=== PATIENT | male | born 1970 | race Caucasian/White ===

== ENCOUNTER 2024-09-27 01:09 | Emergency (ER) | payer OTHER, SELFPAY ==
[2024-09-27 01:13] VITALS: BP 225/136
[2024-09-27 02:20] LABS: % Basophils 0.9 % (0-2); % Eosinophils 4.4 % (0-6); % Immature Granulocytes 0.3 % (0-0.5); % Lymphocytes 22.2 % (20.5-51.1); % Monocytes 7.2 % (1.7-9.3); Absolute Basophils 0.1 10^3/uL (0-0.2); Absolute Eosinophils 0.5 10^3/uL (0-0.7); Absolute Lymphocytes 2.3 10^3/uL (1.2-3.4); Absolute Monocytes 0.7 10^3/uL (0.1-0.6); Absolute Neutrophils 6.6 10^3/uL (1.4-6.5); Hemoglobin 16.7 g/dL (13.0-18.0); Mean Corp Hgb Conc. 35.5 g/dL (33.0-37.0); Mean Corpuscular Hgb 32.1 pg (27.0-31.0); Mean Corpuscular Volume 90.2 fL (80.0-94.0); Nucleated Red Blood Cells % 0 % (-); Platelet Count 212 10^3/uL (130-400); Red Blood Cell Count 5.21 10^6/uL (4.70-6.10); Red Cell Dist. Width 11.9 % (11.5-14.5); White Blood Cell Count 10.2 10^3/uL (4.8-10.8)
[2024-09-27 02:38] LABS: Urine Albumin 1+ (Neg - Trace); Urine Bilirubin Negative (Negative); Urine Character Clear (Clear); Urine Color Yellow; Urine Glucose Negative (Negative); Urine Ketone Negative (Negative); Urine Leukocyte Negative (Negative); Urine Nitrite Negative (Negative); Urine Occult Blood 4+ (Negative); Urine Specific Gravity 1.015 (<1.030); Urine Urobilinogen Negative (Neg - 1+)
[2024-09-27 02:39] LABS: ALT (SGPT) 46 U/L (0-50); AST (SGOT) 32 U/L (17-59); Albumin 5.2 g/dl (3.5-5.0); Alkaline Phosphatase 82 U/L (38-126); Blood Urea Nitrogen 22 mg/dl (9-20); Carbon Dioxide 26 mmol/L (22-30); Chloride 104 mmol/L (98-107); Glucose 133 mg/dl (70-99); Potassium 4.4 mmol/L (3.5-5.1); Sodium 142 mmol/L (135-145); Total Bilirubin 0.7 mg/dl (0.2-1.3); Total Protein 7.9 g/dl (6.3-8.2); eGFR > 60.00
[2024-09-27 03:04] LABS: Urine Amorphous Seen; Urine Red Blood Cell >100 /HPF (0-2)
[2024-09-27 03:05] LABS: Urine Bacteria Moderate (Negative); Urine Granular Cast 0-2 /LPF (0); Urine White Cell 0-2 /HPF (0-5)
[2024-09-27 03:06] LABS: Urine Mucus Moderate
[2024-09-27 06:40] VITALS: BP 152/80
--- NOTE | 2024-09-27 07:02 | ED.GENMED ---
History of Present Illness
General
Chief Complaint: Flank Pain
Source: patient
Exam Limitations: none
Time Seen by Provider: 09/27/24 06:04
Nursing documentation reviewed up to this point in time: agreed with
History of Present Illness
History of Present Illness:
Patient presents to ED secondary to intermittent left flank pain radiating to his left groin over the past 2 days. Patient has taken Vicodin and Motrin prior to arrival, with mild improvement symptoms. Denies nausea or vomiting. Denies difficulty
with urination. Denies fever or chills. Patient states that he has had similar symptoms in the past, secondary to kidney stones, which he has been able to pass spontaneously.
Past History
Past History
ED Past Medical History: Asthma
Social History
Tobacco: Non-smoker
Alcohol: Occasional
Living: with family
Employment: Employed
Family History
Family History: Other (Noncontributory)
Review of Systems
Review of Systems
Allergies reviewed?: Yes
All Other Systems: ROS reviewed and negative except as documented in HPI and ROS
Constitutional: Reports no symptoms
EENT: Reports no symptoms
ABD/GI: Reports no symptoms
: Reports flank pain
Musculoskeletal: Reports no symptoms
Skin: Reports no symptoms
Neurological: Reports no symptoms
Phy Exam
Physical Exam
Physical Exam:
Physical Exam
General: no apparent distress, not acutely ill. afebrile.
Head: nc/at. eomi
Neck: supple. normal range of motion.
Abdomen: normal bowel sounds. not tender.
Neuro: alert and oriented x 3. no focal neurological deficits
Skin: no rash
Psychiatric: well kept. interactive and cooperative
Extremities: no edema. no calf tenderness.
Course
Orders/Labs/Results
Orders:
Orders
09/27/24 01:26
Complete Blood Count/With Diff Urgent
Comprehensive Metabolic Panel Urgent
02/02/25 02:34
Urinalysis Urgent
Date Specimen was Collected: 09/27/24
Time Specimen was Collected: 01:17
Urine Microscopic Urgent
Date Specimen was Collected: 09/27/24
Time Specimen was Collected: 01:17
09/27/24 06:09
CT Abd/pel Without Iv Or Oral Urgent
Comment:
Reason For Exam: left flank pain
09/27/24 06:56
Ketorolac [Toradol] 30 mg IM NOW STA
Oxycodone/Acetaminophen [Percocet 5/325] 1 tablet PO NOW STA
09/27/24 07:32
Oxycodone/Acetaminophen [Percocet 5/325] 1 tablet .ROUTE .STK-MED ONE
Abnormal Lab Results
09/27/24 09/27/24
01: 02:34
MCH 32.1 H pg
(27.0-31.0)
Absolute Neuts (auto) 6.6 H 10^3/uL
(1.4-6.5)
Absolute Monos (auto) 0.7 H 10^3/uL
(0.1-0.6)
BUN 22 H mg/dl
(9-20)
Glucose 133 H mg/dl
(70-99)
Albumin 5.2 H g/dl
(3.5-5.0)
Urine Occult Blood 4+ A
(Negative)
Urine RBC >100 A /HPF
(0-2)
Urine Bacteria Moderate A
(Negative)
Urine Albumin 1+ A
(Neg - Trace)
09/27/24 01:26
09/27/24 01:26
Vital Signs
Initial and Last Documented VS:
Initial Vital Signs
Temp Pulse Resp BP Pulse Ox
98.1 F 88 22 225/136 98
09/27/24 01:13 09/27/24 01:13 09/27/24 01:13 09/27/24 01:13 09/27/24 01:13
Last Documented Vital Signs
Temp Pulse Resp BP Pulse Ox
98.1 F 75 18 158/94 96
09/27/24 01:13 09/27/24 08:50 09/27/24 08:50 09/27/24 08:50 09/27/24 08:50
MDM/Problems Addressed
MDM/Problems Addressed:
History, exam, and CT scan consistent with renal colic secondary to obstructing renal stone. Blood work within normal limits UA inconsistent with acute infection. Pain adequately controlled. Patient will be started on Flomax along with pain
medication, as well as urine strainer to be used at home. Urology referral provided at time of discharge. Return precautions provided, i.e. fever/inability to urinate/worsening pain
*Critical Care Note
Total Time (30-74mins, 75-104mins- exclusive of procedures): Not Applicable
ED Attending Note
-
Portions of this chart may have been created with voice recognition software.� Occasional wrong word or��sound alike� substitutions may have occurred due to the inherent limitations of voice recognition software.
Discharge Plan
Departure
Patient Disposition: Home (Routine Discharge)
Date of Disposition: 09/27/24
Time of Disposition: 08:28
Patient with high blood pressure during this ER visit?: Yes
Condition: Good
Discharge Problem:
Renal colic
Instructions: Renal Colic (DC)
Prescriptions:
New
hydrocodone-acetaminophen 5-300 mg tablet
1 tab PO Q8H PRN (Reason: Pain) Qty: 14 0RF
tamsulosin [Flomax] 0.4 mg capsule
0.4 mg PO DAILY Qty: 7 0RF
ondansetron 4 mg Tablet,Disintegrating
4 mg PO TIDPRN PRN (Reason: nausea/vomiting) Qty: 12 0RF
No Action
albuterol sulfate [Albuterol Sulfate HFA] 18 GM HFA aerosol inhaler
18 gm inhalation Q6HPRN PRN (Reason: asthma symptoms)
oxycodone-acetaminophen 5 MG/325 MG tablet
1 - 2 tab PO .TWICEWEEKLY PRN (Reason: pain)
Patient Comments:
pt states 'I still take this for back pain'
tamsulosin 0.4 MG capsule
0.4 mg PO DAILY Qty: 14 0RF
hydrocodone-acetaminophen [Vicodin] 1 EACH tablet
1 ea PO Q4HPRN PRN (Reason: pain) Qty: 15 0RF
Referrals:
Jewel Merchant MD [Active] -
Ronnell Sosa MD [Family Provider] -
Activity Restrictions/Additional Instructions:
As discussed, please follow-up with referred urologist for further evaluation and treatment. Please consider return to ED with worsening symptoms, i.e. fever/worsening pain/inability to urinate. Your prescriptions have been sent electronically to
[facility] pharmacy in [place].
Interventions
Interventions:
*Risk Screen - Suicide Last Done: 09/27/24 01:13
*General Assessment Last Done: 09/27/24 06:42
*Neglect/Abuse Screening Last Done: 09/27/24 01:13
*ED COVID-19 Vaccine History Last Done: 09/27/24 06:42
*Nursing Disposition Last Done: 09/27/24 08:50
JC-Filczh-Avdkhhltjh Assessment Last Done: 09/27/24 06:39
ED-Male Genitourinary Assessment Last Done: 09/27/24 06:39
Discharge Date and Time
Discharge Date/Time: 09/27/24 08:52
Print Language: [place]
[2024-09-27] MEDS: PERCOCET 5/325 1 TABLET PO (07:23)
[2024-09-27] MEDS: TORADOL 30 MG IM (07:24)
[2024-09-27 08:39] VITALS: BP 158/94
[2024-09-27 08:50] VITALS: BP 158/94
== END 2024-09-27 08:52 | disposition home or self-care (01) ==
LOC: EMR 01:09
PROVIDERS: Emergency Medicine; EMERGENCY PHYSICIAN Emergency Medicine; FAMILY PHYSICIAN Family Medicine
DX: N13.2 Hydronephrosis with renal and ureteral calculous obstruction (principal); J45.909 Unspecified asthma, uncomplicated
CPT/HCPCS: 96372; 99284; 74176; 80053; 81003; 81015; 85025

== ENCOUNTER → 2024-10-20 09:38 | Outpatient (REF) | payer OTHER, SELFPAY | LOC: RAD 09:38 | PROVIDERS: ATTENDING PHYSICIAN Specialist; FAMILY PHYSICIAN Internal Medicine | DX: N20.0 Calculus of kidney (principal) | CPT/HCPCS: 74018 ==

== ENCOUNTER 2024-12-02 06:22 | Day surgery (SDC) | payer OTHER, SELFPAY ==
[2024-11-23 14:07] VITALS: BMI 32.0
[2024-12-02] VITALS (8 sets, daily range): BP systolic 156–194; BP diastolic 88–108; BMI 32.0
[2024-12-02] MEDS: Pyridium 200 MG PO (16:23)
== END 2024-12-02 16:55 | disposition home or self-care (01) ==
LOC: SDS 06:22
PROVIDERS: ATTENDING PHYSICIAN Specialist; FAMILY PHYSICIAN Internal Medicine
DX: N20.0 Calculus of kidney (principal)
CPT/HCPCS: 52356; 36415; 74018; 76000; 93005; C1894; C2617

== ENCOUNTER 2024-12-15 19:16 | Emergency (ER) | payer OTHER, SELFPAY ==
[2024-12-15 19:21] VITALS: BP 220/123
[2024-12-15 19:44] VITALS: BP 192/113
[2024-12-15 19:45] VITALS: BMI 32.0
[2024-12-15 19:59] LABS: % Basophils 1.3 % (0-2); % Eosinophils 8.6 % (0-6); % Immature Granulocytes 0.3 % (0-0.5); % Lymphocytes 30.8 % (20.5-51.1); % Monocytes 5.9 % (1.7-9.3); % Neutrophils 53.1 % (42.2-75.2); Absolute Basophils 0.1 10^3/uL (0-0.2); Absolute Eosinophils 0.6 10^3/uL (0-0.7); Absolute Lymphocytes 2.1 10^3/uL (1.2-3.4); Absolute Monocytes 0.4 10^3/uL (0.1-0.6); Absolute Neutrophils 3.6 10^3/uL (1.4-6.5); Hematocrit 40.6 % (39.0-52.0); Hemoglobin 14.4 g/dL (13.0-18.0); Mean Corp Hgb Conc. 35.5 g/dL (33.0-37.0); Mean Corpuscular Hgb 32.4 pg (27.0-31.0); Mean Corpuscular Volume 91.4 fL (80.0-94.0); Mean Platelet Volume 9.7 fL (7.4-10.4); Nucleated Red Blood Cells % 0 % (-); Platelet Count 200 10^3/uL (130-400); Red Blood Cell Count 4.44 10^6/uL (4.70-6.10); Red Cell Dist. Width 11.9 % (11.5-14.5); White Blood Cell Count 6.8 10^3/uL (4.8-10.8)
[2024-12-15 20:00] VITALS: BP 189/96
[2024-12-15 20:16] LABS: ALT (SGPT) 25 U/L (0-50); AST (SGOT) 21 U/L (17-59); Albumin 4.2 g/dl (3.5-5.0); Alkaline Phosphatase 63 U/L (38-126); Blood Urea Nitrogen 14 mg/dl (9-20); Calcium 8.9 mg/dl (8.4-10.2); Carbon Dioxide 26 mmol/L (22-30); Chloride 106 mmol/L (98-107); Estimated Creatinine Clearance > 125 ml/min; Glucose 160 mg/dl (70-99); Sodium 140 mmol/L (135-145); Total Bilirubin 0.5 mg/dl (0.2-1.3); Total Protein 6.5 g/dl (6.3-8.2); eGFR > 60.00
--- NOTE | 2024-12-15 20:25 | ED.GENMED ---
History of Present Illness
General
Chief Complaint: Blood Pressure Problem
Source: patient
Time Seen by Provider: 12/15/24 20:08
History of Present Illness
History of Present Illness:
54-year-old male presents to the emergency room complaining of elevated blood pressure, left flank pain. Patient is approximate 13 days postop from having a left ureteral stone lasered and a stent placement. Patient followed up postoperatively
with his primary care doctor and dry wall finisher and both noted he had moderate elevated blood pressure in the 160s. Previously the patient has not had any elevation in blood pressures. He began having some sensation of feeling unwell and headaches
over the past couple days. He measured his blood pressure today and it was noted to be in the 180s systolic. This prompted him to come to the emergency room for evaluation. Patient has not been taking any medication for blood pressure. He is
complaining of left flank pain since his procedure. He continues to have left flank pain for which he has been taking hydrocodone intermittently as well as Tylenol and ibuprofen. He is taking 200 mg of ibuprofen every 4-6 hours. He has also been
taking tamsulosin. He denies any fever. Patient indicated he had a brief episode of left upper chest discomfort while walking into the emergency room but is not having chest discomfort now. He did not have chest discomfort anytime previous to
this. He has not had any shortness of breath.
Past History
Past History
ED Past Medical History: Asthma
Social History
Tobacco: Non-smoker
Alcohol: Occasional
Living: with family
Employment: Employed
Family History
Family History: Other (Noncontributory)
Phy Exam
Physical Exam
Physical Exam:
General: Awake, Alert, Oriented X3. No acute distress.
Vitals: Hypertensive
Head: Atraumatic
Eyes: Pupils equal, EOMI
Throat: Airway intact, no exudates
Neck: Trachea midline
Lungs: Clear and equal b/l
Heart: Regular rate, no murmurs
Abd: Soft, mild left lower abdominal pain to palpation, No pulsatile mass
Back: Mild left CVA tenderness to
Neuro: Nonfocal
Skin: Warm, dry, no rash
Extremities: pulses equal b/l, no edema
Course
Orders/Labs/Results
Orders:
Orders
12/15/24 19:17
EKG [Electrocardiogram (*1)] Urgent
Reason for Study: Chest Pain
EKG- Treatment ONCE
12/15/24 19:48
Complete Blood Count/With Diff Urgent
Comprehensive Metabolic Panel Urgent
Troponin I Urgent
12/15/24 20:21
Ketorolac [Toradol] 15 mg IV NOW STA
12/15/24 20:32
CT Chest Angio W/wo Iv Contras Urgent
Comment:
Reason For Exam: hypertension, chest pain
12/15/24 20:34
Electrocardiogram (*1) Urgent
Reason for Study: Abnormal EKG
EKG- Treatment ONCE
12/15/24 22:06
Troponin I Urgent
12/15/24 22:55
Lisinopril [Zestril] 10 mg PO NOW STA
Abnormal Lab Results
12/15/24
19:48
RBC 4.44 L 10^6/uL
(4.70-6.10)
MCH 32.4 H pg
(27.0-31.0)
Eosinophils % 8.6 H %
(0-6)
Glucose 160 H mg/dl
(70-99)
12/15/24 19:48
12/15/24 19:48
Vital Signs
Initial and Last Documented VS:
Initial Vital Signs
Temp Pulse Resp BP Pulse Ox
98.7 F 79 19 220/123 97
12/15/24 19:21 12/15/24 19:21 12/15/24 19:21 12/15/24 19:21 12/15/24 19:21
Last Documented Vital Signs
Temp Pulse Resp BP Pulse Ox
98.7 F 70 15 165/94 96
12/15/24 19:21 12/15/24 23:07 12/15/24 21:30 12/15/24 23:07 12/15/24 22:30
MDM/Problems Addressed
Differential Diagnosis Includes:
Uncontrolled hypertension, hypertensive emergency, renal failure, thoracic dissection or acute coronary syndrome
MDM/Problems Addressed:
Patient arrives with significantly elevated blood pressure. He states he is never had high blood pressure before. His physical exam is benign aside from left flank pain which is expected due to his indwelling ureteral stent. Patient did admit to
some anterior chest pain intermittently. Ultimately he had a elaborate workup which was fortunately unremarkable. Troponin is normal x 2. CT angiogram of the chest performed given his significant hypertension and concurrent flank and chest pain.
Fortunately CT shows no abnormalities. Patient's blood pressure has significantly improved without intervention here. Will prescribe lisinopril for at least the short-term. Patient is already been evaluated by cardiology as an outpatient and the
plan was for him to have a stress test and echo at some point. Will place him on the chest pain hotline so this can be done in a more timely fashion. Patient's EKG showed a right bundle branch block which has been present. There seem to be some
more T wave changes laterally but this might be lead placement as his troponin is normal x 2 and did not go up at all. Patient's blood pressure may be related to the pain and physiologic stress of the indwelling stent.
*Radiology
Radiology exam reviewed: radiology read reviewed
*Pulse Oximetry
Patient hypoxic: no
*EKG
Interpreted by ED Provider?: Yes
Heart Rate: 64
Rate: normal
Rhythm: sinus
QRS Pattern: right bundle branch block
Ischemia: T-wave inversion (Laterally)
*Edge Finisher Interpretation
Rate: normal
Interpretation: normal
Rhythm: sinus
*Critical Care Note
Total Time (30-74mins, 75-104mins- exclusive of procedures): Not Applicable
ED Attending Note
-
Portions of this chart may have been created with voice recognition software.� Occasional wrong word or��sound alike� substitutions may have occurred due to the inherent limitations of voice recognition software.
Discharge Plan
Departure
Patient Disposition: Home (Routine Discharge)
Date of Disposition: 12/15/24
Time of Disposition: 22:49
Patient with high blood pressure during this ER visit?: Yes
Condition: Good
Discharge Problem:
Hypertension, uncontrolled, Chest pain
Instructions: High Blood Pressure (DC), Chest Pain DCA Follow Up
Prescriptions:
New
lisinopril 10 mg tablet
10 mg PO DAILY Qty: 30 0RF
No Action
hydrocodone-acetaminophen 5-300 mg tablet
1 tab PO Q8H PRN (Reason: Pain) Qty: 14 0RF
multivitamin Tablet
1 tab PO DAILY
fluticasone propion-salmeterol 250-50 mcg/dose Blister With Device
1 inh INHALATION DAILY
albuterol sulfate [ProAir HFA] 90 mcg/actuation Hfa Aerosol Inhaler
2 puff INHALATION 6XD PRN (Reason: asthma)
omega 5-uyv-ohb-fish oil [Fish Oil] 1,000 (120-180) mg Capsule
1 cap PO DAILY
Glucosamine
1 tab PO DAILY
turmeric
1 tab PO DAILY
Referrals:
Miguel Sosa MD [Family Provider] -
Interventions
Interventions:
*Risk Screen - Suicide Last Done: 12/15/24 19:21
*General Assessment Last Done: 12/15/24 19:45
*Neglect/Abuse Screening Last Done: 12/15/24 19:21
*ED- Fall Risk Assessment Last Done: 12/15/24 19:45
*ED COVID-19 Vaccine History Last Done: 12/15/24 19:45
*Nursing Disposition Last Done: 12/15/24 23:10
ED- Cardiac Assessment Last Done: 12/15/24 19:45
ED- Neurological Assessment Last Done: 12/15/24 19:45
ED- Pulmonary Assessment Last Done: 12/15/24 19:45
Discharge Date and Time
Discharge Date/Time: 12/15/24 23:10
Print Language: [place]
[2024-12-15] MEDS: TORADOL 15 MG IV (20:26)
[2024-12-15 22:07] VITALS: BP 164/101
[2024-12-15 22:38] LABS: Troponin I 0.026 ng/ml
[2024-12-15] MEDS: ZESTRIL 10 MG PO (23:07)
== END 2024-12-15 23:10 | disposition home or self-care (01) ==
LOC: EMR 19:16
PROVIDERS: Emergency Medicine; EMERGENCY PHYSICIAN Emergency Medicine; FAMILY PHYSICIAN Internal Medicine
DX: R51.9 Headache, unspecified (principal); R07.89 Other chest pain; R10.30 Lower abdominal pain, unspecified; I10 Essential (primary) hypertension; I45.10 Unspecified right bundle-branch block; J45.909 Unspecified asthma, uncomplicated; Z98.890 Other specified postprocedural states; Z87.442 Personal history of urinary calculi; Z88.1 Allergy status to other antibiotic agents; Z88.3 Allergy status to other anti-infective agents; Z88.0 Allergy status to penicillin
CPT/HCPCS: 99285; 96374; 71275; 80053; 84484; 85025; 93005; Q9967

== ENCOUNTER → 2025-02-09 07:39 | Outpatient (REF) | payer OTHER, SELFPAY | LOC: RCS 07:39 | PROVIDERS: ATTENDING PHYSICIAN Internal Medicine Cardiovascular Disease; FAMILY PHYSICIAN Internal Medicine | DX: R07.2 Precordial pain (principal); R06.09 Other forms of dyspnea; R94.31 Abnormal electrocardiogram [ECG] [EKG] | CPT/HCPCS: 93017; 93320; 93325; 93350 ==

== ENCOUNTER 2025-04-06 10:05 | Emergency (ER) | payer OTHER, SELFPAY ==
[2025-04-06] VITALS (11 sets, daily range): BP systolic 133–178; BP diastolic 82–101; PULSE 49–55
[2025-04-06 10:34] LABS: Hematocrit 42.8 % (39.0-52.0); Hemoglobin 14.9 g/dL (13.0-18.0); Mean Corp Hgb Conc. 34.8 g/dL (33.0-37.0); Mean Corpuscular Volume 92.0 fL (80.0-94.0); Nucleated Red Blood Cells % 0 % (-); Platelet Count 177 10^3/uL (130-400); Red Cell Dist. Width 12.7 % (11.5-14.5)
[2025-04-06 11:00] LABS: ALT (SGPT) 31 U/L (0-50); AST (SGOT) 20 U/L (17-59); Albumin 4.3 g/dl (3.5-5.0); Alkaline Phosphatase 64 U/L (38-126); Blood Urea Nitrogen 14 mg/dl (9-20); Calcium 9.1 mg/dl (8.4-10.2); Carbon Dioxide 27 mmol/L (22-30); Chloride 107 mmol/L (98-107); Glucose 102 mg/dl (70-99); Potassium 4.3 mmol/L (3.5-5.1); Sodium 140 mmol/L (135-145); Total Protein 6.9 g/dl (6.3-8.2); eGFR > 60.00
[2025-04-06 11:10] LABS: Troponin I < 0.012 ng/ml
[2025-04-06] MEDS: TORADOL 15 MG IV (12:30)
--- NOTE | 2025-04-06 12:47 | ED.GENMED ---
History of Present Illness
General
Chief Complaint: Dizziness
Source: patient and spouse
Exam Limitations: none
Time Seen by Provider: 04/06/25 11:45
Nursing documentation reviewed up to this point in time: agreed with
History of Present Illness
History of Present Illness:
Patient is a 54-year-old male with history of hypertension, asthma who presents the emergency department for evaluation of chest pain. Patient reports a pain in his left chest, which he noticed when he woke up this morning around 5 AM. It has been
coming and going since without any clear exertional or pleuritic component. Patient reports maybe mild shortness of breath, however that has since resolved. He denies any fever, productive cough or recent trauma. He denies any associated diaphoresis
or dizziness.
Patient does note that he became slightly lightheaded after bending down to pick something up yesterday.
He denies any travel or recent surgeries. No exogenous hormones. No personal or family history of blood clot/clotting disorders. He denies any personal history of coronary artery disease, however states his father did have a heart attack in his 60s.
Past History
Past History
ED Past Medical History: Asthma
Social History
Tobacco: Non-smoker
Alcohol: Occasional
Living: with family
Employment: Employed
Family History
Family History: Other (Noncontributory)
Review of Systems
Review of Systems
Allergies reviewed?: Yes
All Other Systems: ROS reviewed and negative except as documented in HPI and ROS
Phy Exam
Physical Exam
Physical Exam:
Vitals: Hypertensive, otherwise vital signs stable. Afebrile
General: Patient is well appearing, no acute distress
Skin: Warm and dry, no rashes or lesions
Head: Normocephalic, atraumatic
Eyes: Sclera nonicteric. EOMs intact. No nystagmus.
Throat: Protecting airway
Neck: Normal ROM, no cervical spine tenderness, no meningismus
Cardiac: Regular rate and rhythm, no murmurs. No reproducible chest wall tenderness. 2+ palpable and equal radial pulses bilaterally
Pulm: Normal respiratory effort, no wheezes, rales, rhonchi heard on exam
Abdomen: Abdomen soft and nontender.
Extremities: No evidence of cyanosis or edema. No calf tenderness.
Neuro: AAOx3. Grossly intact.
Psychiatric: Normal affect.
Course
Orders/Labs/Results
Orders:
Orders
04/06/25 10:11
Electrocardiogram (*1) Urgent
Reason for Study: Chest Pain
Cardiac Monitoring- Treatment ONCE
EKG- Treatment ONCE
IV Insert/Care/Rem.- Treatment PRN
O2 Therapy [RESP] Urgent
Titrate/Wean O2 to maintain O2 sat greater than (%): 90
Special Instructions: Maintain sats >/=90%
Pulse Ox/spot Check [RESP] Urgent
Quantity: 1
Special Instructions: ON ROOM AIR
04/06/25 10:19
Complete Blood Count/With Diff Urgent
Comprehensive Metabolic Panel Urgent
Troponin I Urgent
04/06/25 12:21
CR Chest - 2 Views Urgent
Comment:
Reason For Exam: CP, SOB
04/06/25 12:22
Ketorolac [Toradol] 15 mg IV NOW STA
04/06/25 12:26
D-Dimer Urgent
04/06/25 13:20
Electrocardiogram (*1) Urgent
Reason for Study: Chest Pain
EKG- Treatment ONCE
04/06/25 13:23
Troponin I Urgent
04/06/25 14:16
Orthostatic VS- Treatment ONCE
Abnormal Lab Results
04/06/25
10:19
RBC 4.65 L 10^6/uL
(4.70-6.10)
MCH 32.0 H pg
(27.0-31.0)
Eosinophils % 8.3 H %
(0-6)
Glucose 102 H mg/dl
(70-99)
04/06/25 10:19
04/06/25 10:19
Vital Signs
Initial and Last Documented VS:
Initial Vital Signs
Temp Pulse Resp BP Pulse Ox
98.2 F 61 22 178/101 98
04/06/25 10:08 04/06/25 10:08 04/06/25 10:08 04/06/25 10:08 04/06/25 10:08
Last Documented Vital Signs
Temp Pulse Resp BP Pulse Ox
98.2 F 55 15 133/90 97
04/06/25 10:08 04/06/25 14:16 04/06/25 14:16 04/06/25 14:30 04/06/25 14:16
MDM/Problems Addressed
Differential Diagnosis Includes:
Not limited to: Muscle strain/spasm, GERD, pericarditis, acute dehydration, near syncope, ACS, pulmonary embolism, etc.
MDM/Problems Addressed:
54-year-old male presenting with chest pain and episode of lightheadedness yesterday. No exertional or pleuritic component to symptoms. No fever, productive cough or recent trauma. Patient hypertensive on arrival, however improved by my assessment.
Physical exam as above. Patient very well appearing and in no distress. Cardio/pulmonary assessment unremarkable. No chest wall tenderness. No clinical evidence of DVT on exam with equal peripheral pulses bilaterally.
Prior to my evaluation, basic labs were obtained without any clinically significant abnormalities. Initial troponin undetectable. EKG with some t-wave inversions however unchanged from prior.
ED plan: check serial troponin/EKGs. Will obtain chest x-ray. Relatively low suspicion for pulmonary embolism � will screen with d-dimer given report of shortness of breath.
Update: Serial troponins negative x2 with unchanged EKG. Patients symptoms have resolved. D-dimer negative. chest x-ray unremarkable. Given negative work-up in the emergency department, low suspicion for a cardio/pulmonary emergency. At this point,
feel stable for discharge home with outpatient cardiology follow up. Return precautions discussed. Patient comfortable with plan.
Chronic conditions affecting care:
Hypertension
Acute Exacerbation and/or Progression of Chronic Illness:
Acutely hypertensive
*Radiology
Radiology exam reviewed: preliminary read by ED provider (Chest x-ray reviewed by me-no acute abnormalities) and radiology read reviewed
*Pulse Oximetry
SaO2: 98
Oxygen Mode of Delivery: Room air
Patient hypoxic: no
*EKG
Interpreted by ED Provider?: Yes
EKG Intrepretation Date: 04/06/25
Interpretation: abnormal
Comparison EKG: changes noted
Heart Rate: 57
Rate: bradycardiac
Rhythm: sinus
[place]: normal axis
Interval: normal QT interval
QRS Pattern: poor R-wave progression and right bundle branch block
Ischemia: non-specific ST changes (T wave inversions in inferior leads, )
*Automation Developer Interpretation
Rate: bradycardiac
Interpretation: abnormal
Heart Rate: 58
Rhythm: sinus
*Critical Care Note
Total Time (30-74mins, 75-104mins- exclusive of procedures): Not Applicable
Data Reviewed
Review of Other/Old Records Reveals: Radiology Studies (Stress echo from 02/09/2025-low risk stress test; LV EF 55-60% on cardiac echo from 02/09/2025)
ED Attending Note
-
Portions of this chart may have been created with voice recognition software.� Occasional wrong word or��sound alike� substitutions may have occurred due to the inherent limitations of voice recognition software.
Discharge Plan
Departure
Patient Disposition: Home (Routine Discharge)
Date of Disposition: 04/06/25
Time of Disposition: 14:46
Patient with high blood pressure during this ER visit?: Yes
Discharge Problem:
Chest pain
Instructions: Chest pain - Discharge instructions, BLOOD PRESSURE
Prescriptions:
No Action
hydrocodone-acetaminophen 5-300 mg tablet
1 tab PO Q8H PRN (Reason: Pain) Qty: 14 0RF
multivitamin Tablet
1 tab PO DAILY
fluticasone propion-salmeterol 250-50 mcg/dose Blister With Device
1 inh INHALATION DAILY
albuterol sulfate [ProAir HFA] 90 mcg/actuation Hfa Aerosol Inhaler
2 puff INHALATION 6XD PRN (Reason: asthma)
omega 5-ulp-cuw-fish oil [Fish Oil] 1,000 (120-180) mg Capsule
1 cap PO DAILY
Glucosamine
1 tab PO DAILY
turmeric
1 tab PO DAILY
lisinopril 10 mg tablet
10 mg PO DAILY Qty: 30 0RF
Referrals:
Omi Payne DO [Active, Cardiology] - Follow up in 1 week
Miguel Sosa MD [Family Provider]
Activity Restrictions/Additional Instructions:
RETURN TO THE EMERGENCY DEPARTMENT WITH ANY CHEST PAIN, SHORTNESS OF BREATH/DIFFICULTY BREATHING, FEVERS OR PRODUCTIVE COUGH, LOWER LEG SWELLING, PERSISTENT LIGHTHEADEDNESS/DIZZINESS OR EPISODES OF FAINTING, WORSENING IN CURRENT SYMPTOMS, OR ANY
OTHER CONCERNS
- As discussed - your labs showed no acute abnormalities in the emergency department.
- Please be sure that you stay well-hydrated at home. Continue to take all medications as prescribed
- Follow-up with cardiology for further evaluation/management to ensure that your symptoms are
Monitor your symptoms closely and return to the emergency department with any acute worsening/new symptoms or any other concerns
Interventions
Interventions:
*Risk Screen - Suicide Last Done: 04/06/25 10:08
*General Assessment Last Done: 04/06/25 10:08
*Neglect/Abuse Screening Last Done: 04/06/25 10:08
*ED- Fall Risk Assessment Last Done: 04/06/25 11:53
*ED COVID-19 Vaccine History Last Done: 04/06/25 11:53
*Nursing Disposition Last Done: 04/06/25 14:55
ED- Neurological Assessment Last Done: 04/06/25 11:52
ED- Cardiac Assessment Last Done: 04/06/25 11:52
Discharge Date and Time
Discharge Date/Time: 04/06/25 14:56
Print Language: [place]OL[place]
[2025-04-06 12:49] LABS: D-Dimer < 0.27 ug/mlFEU (0.00-0.50)
[2025-04-06 14:05] LABS: Troponin I < 0.012 ng/ml
== END 2025-04-06 14:56 | disposition home or self-care (01) ==
LOC: EMR 10:05
PROVIDERS: Physician Assistant; Student in an Organized Health Care Education/Training Program; EMERGENCY PHYSICIAN Emergency Medicine; FAMILY PHYSICIAN Internal Medicine
DX: R07.89 Other chest pain (principal); R42 Dizziness and giddiness; I10 Essential (primary) hypertension; J45.909 Unspecified asthma, uncomplicated; I45.10 Unspecified right bundle-branch block
CPT/HCPCS: 99285; 96374; 71046; 80053; 84484; 85025; 85379; 93005

== ENCOUNTER → 2025-06-18 15:11 | Outpatient (REF) | payer OTHER, SELFPAY | LOC: HWRAD 15:11 | PROVIDERS: ATTENDING PHYSICIAN Internal Medicine | DX: J98.4 Other disorders of lung (principal); R91.1 Solitary pulmonary nodule | CPT/HCPCS: 71250 ==